=== PATIENT | female | born 1945 ===

== ENCOUNTER 2018-04-06 07:24 | Emergency (ER) | payer OTHER ==
--- NOTE | 2018-04-06 08:06 | C.PDOC ---
History Of Present Illness Patient presents to ED c/o left sided facial paralysis/droop since approx 6am. She is also c/o occipital headache, decreased ability to close left eye and wrinkle left forehead. Patient denies visual changes, slurred speech, extremity weakness, sensory changes, gait changes, chest pain, palpitations, SOB , neck pain, fever. She admits to prior episode of "facial paralysis" in the that resolved spontaneously, lasted approx 1 month. Patient denies any PMHx, and arrived from [place] approx 6 months ago. Time Seen by Provider: 04/06/18 07:24 Chief Complaint (Nursing): Weakness/Neurological Deficit History Per: Patient, Family History/Exam Limitations: no limitations Onset/Duration Of Symptoms: Hrs (since 6am) Current Symptoms Are (Timing): Still Present Seizure Or Post-ictal Symptoms: None Possible Causative Factor(s): denies: Vertigo Past Medical History Reviewed: Historical Data, Nursing Documentation, Vital Signs Vital Signs: Last Vital Signs Temp 98.1 F 04/06/18 13:40 Pulse 56 L 04/06/18 13:40 Resp 18 04/06/18 13:40 BP 172/80 H 04/06/18 13:40 Pulse Ox 100 04/06/18 13:40 - Medical History PMH: No Chronic Diseases Other PMH: prior facial paralysis () Family History: States: No Known Family Hx - Social History Hx Alcohol Use: No Hx Substance Use: No - Immunization History Hx Tetanus Toxoid Vaccination: No Hx Influenza Vaccination: No Hx Pneumococcal Vaccination: No Review Of Systems Constitutional: Negative for: Fever, Chills ENT: Negative for: Ear Pain, Ear Discharge Cardiovascular: Negative for: Chest Pain, Palpitations Respiratory: Negative for: Cough, Shortness of Breath Gastrointestinal: Negative for: Nausea, Vomiting Skin: Negative for: Rash Neurological: Positive for: Headache (occipital (left sided)), Other (left sided facial paralysis). Negative for: Weakness, Numbness, Incoordination, Change in Speech, Confusion, Seizures, Altered Mental Status, Dizziness Physical Exam - Physical Exam Appears: Well, Non-toxic, No Acute Distress Skin: Normal Color, Warm, Dry, No Rash Head: Atraumatic, Normacephalic Eye(s): bilateral: Normal Inspection, PERRL, EOMI Oral Mucosa: Moist Cardiovascular: Rhythm Regular, No Murmur Respiratory: Normal Breath Sounds, No Rales, No Rhonchi, No Wheezing Gastrointestinal/Abdominal: Normal Exam, Bowel Sounds, Soft, No Tenderness Neurological/Psych: Oriented x3, No Normal Cranial Nerves (left sided facial paralysis - unable to move left side of lips, unable to close left eye, decreased wrinkling of left forehead), No Cerebellar Signs, Normal Motor, Normal Sensation, Normal Reflexes, No Expressive Aphasia, No Receptive Aphasia, No Dysarthria, No Romberg Gait: Steady ED Course And Treatment - Laboratory Results Result Diagrams: 04/06/18 07:54 04/06/18 07:54 ECG: Interpreted By Me, Viewed By Me (sinus bradycardia, left axis deviation, no acute ST/T wave changes) ECG Interpretation: No Acute Changes O2 Sat by Pulse Oximetry: 97 (RA) Pulse Ox Interpretation: Normal - CT Scan/US ct head Other Rad Studies (CT/US): Read By Radiologist, Radiology Report Reviewed CT/US Interpretation: Date of service: 04/06/2018. PROCEDURE: CT HEAD WITHOUT CONTRAST. HISTORY: left facial paralysis, cva vs facial nerve palsy. COMPARISON: None available. TECHNIQUE: Axial computed tomography images were obtained through the head/brain without intravenous contrast. Radiation dose: Total exam DLP = 843.44 MGy-cm. This CT exam was performed using one or more of the following dose reduction techniques: Automated exposure control, adjustment of the mA and/or kV according to patient size, and/or use of iterative reconstruction technique. FINDINGS: HEMORRHAGE: No intracranial hemorrhage. BRAIN: Normal miller-white matter differentiation and density are appreciated throughout the cerebrum and cerebellum with the brainstem appearing unremarkable as well. There is no mass effect. There is no suspicious extra- axial fluid collection and the midline brain anatomy appears diffusely unremarkable. VENTRICLES: Unremarkable. No hydrocephalus. CALVARIUM: Unremarkable. PARANASAL SINUSES: Unremarkable as visualized. No significant inflammatory changes. MASTOID AIR CELLS: Unremarkable as visualized. No inflammatory changes. OTHER FINDINGS: None. IMPRESSION: Unremarkable noncontrast head CT. Follow-up CT or MRI are available if clinically warranted. MRI brain Other Rad Studies (CT/US): Read By Radiologist, Radiology Report Reviewed CT/US Interpretation: No acute intracranial abnormality. Mild age-related global parenchymal volume loss. Progress Note: Blood work, CT head ordered and reviewed. Patient has only partial paralysis of forehead,not full paralysis typically seen in Schuler's palsy - MRI ordered to eval for CVA vs facial nerve palsy. Reevaluation Time: 13:40 Reassessment Condition: Improved (Patient resting comfortably, in no pain/ distress. Neuro exam unchanged. CT head and MRI both neg for acute CVA. Patient given Rx for Medrol dose pack, Acyclovir, eye drops and Norvasc (BP consistetly elevated during ER stay). She was instructed to follow up with PMD/ clinic in 1-2 days, and understands she should return to ED if symptoms worsen.) Disposition Counseled Patient/Family Regarding: Studies Performed, Diagnosis, Need For Followup, Rx Given - Disposition Referrals: [facility] [Outside] Jonathan Pena MD [Staff Provider] - Disposition: HOME/ ROUTINE Disposition Time: 13:40 Condition: STABLE Additional Instructions: FOLLOW UP WITH NEUROLGY WITHIN 1 WEEK USE MEDICATIONS DIRECTED RETURN TO EMERGENCY ROOM IF SYMPTOMS WORSEN SEGUIR CON NEUROLOGA DENTRO DE 1 SEMANA USE MEDICAMENTOS SEGN LO INDICADO REGRESE AL NICOLE DE EMERGENCIA SI LOS SNTOMAS EMPEORAN Prescriptions: Acyclovir 400 mg PO TID #21 tablet amLODIPine [Norvasc] 2.5 mg PO DAILY #30 tab Carboxymethylcellulose Sodium [Lubricant Eye Drop] 2 ml OP TID #1 bottle Methylprednisolone [Medrol Dose Pack (21 tabs)] 4 mg PO DAILY #21 mg Instructions: Schuler's Palsy (DC) Forms: [employer] ([place]) Print Language: [place] - Clinical Impression Clinical Impression: Facial nerve palsy
[2018-04-06 08:10] LABS: BASO # 0.1 K/uL (0.0-0.2); BASO % 0.9 % (0.0-2.0); EOS # 0.5 K/uL (0.0-0.7); EOS % 6.2 % (0.0-4.0); HEMOGLOBIN 14.2 g/dL (11.0-16.0); LYMPH % 34.5 % (20.0-40.0); MEAN CELL VOLUME 91.1 fL (81.0-99.0); MEAN CORPUSCULAR HEMOGLOBIN 31.3 pg (27.0-31.0); MEAN CORPUSCULAR HGB CONC 34.4 g/dL (33.0-37.0); MEAN PLATELET VOLUME 8.9 fL (7.2-11.7); MONO # 0.7 K/uL (0.0-0.8); MONO % 7.8 % (0.0-10.0); NEUT # 4.3 K/uL (1.8-7.0); NEUT % 50.6 % (50.0-75.0); NRBC % 0.1 % (0.0-2.0); RBC 4.53 Mil/uL (3.80-5.20); RED CELL DISTRIBUTION WIDTH 13.5 % (11.5-14.5); WHITE BLOOD COUNT 8.6 K/uL (4.8-10.8)
[2018-04-06 08:24] LABS: PROTHROMBIN TIME 10.4 SECONDS (9.7-12.2)
--- NOTE | 2018-04-06 08:39 | CT ---
Date of service: 04/06/2018 PROCEDURE: CT HEAD WITHOUT CONTRAST. HISTORY: left facial paralysis, cva vs facial nerve palsy COMPARISON: None available. TECHNIQUE: Axial computed tomography images were obtained through the head/brain without intravenous contrast. Radiation dose: Total exam DLP = 843.44 MGy-cm. This CT exam was performed using one or more of the following dose reduction techniques: Automated exposure control, adjustment of the mA and/or kV according to patient size, and/or use of iterative reconstruction technique. FINDINGS: HEMORRHAGE: No intracranial hemorrhage. BRAIN: Normal miller-white matter differentiation and density are appreciated throughout the cerebrum and cerebellum with the brainstem appearing unremarkable as well. There is no mass effect. There is no suspicious extra-axial fluid collection and the midline brain anatomy appears diffusely unremarkable. VENTRICLES: Unremarkable. No hydrocephalus. CALVARIUM: Unremarkable. PARANASAL SINUSES: Unremarkable as visualized. No significant inflammatory changes. MASTOID AIR CELLS: Unremarkable as visualized. No inflammatory changes. OTHER FINDINGS: None. IMPRESSION: Unremarkable noncontrast head CT. Follow-up CT or MRI are available if clinically warranted.
[2018-04-06 08:43] LABS: CK-MB 0.82 ng/mL (0.0-3.38)
[2018-04-06 08:49] LABS: ALB/GLOB RATIO 1.2 (1.0-2.1); ALBUMIN 4.1 g/dL (3.5-5.0); ALT/SGPT 37 U/L (9-52); AST/SGOT 40 U/L (14-36); BLOOD UREA NITROGEN 18 mg/dL (7-17); GFR AFRICAN-AMERICAN > 60; GFR NON-AFRICAN AMERICAN > 60; HDL CHOLESTEROL 64 mg/dL (30-70)
[2018-04-06 09:02] LABS: LDL CHOLESTEROL 151 mg/dL (0-129)
--- NOTE | 2018-04-06 12:26 | MRI ---
Date of service: 04/06/2018 PROCEDURE: MRI BRAIN WITHOUT CONTRAST HISTORY: left sided facial droop, cva v, facial berve pals COMPARISON: Noncontrast head CT from 04/06/2018 TECHNIQUE: Multiplanar, multisequence MR images of the brain were obtained without intravenous contrast enhancement. FINDINGS: HEMORRHAGE: None DWI: No evidence of an acute or early subacute infarction. BRAIN PARENCHYMA: Chahal-white matter differentiation is preserved. There is no mass, mass effect or abnormal extra-axial fluid collection. There is no territorial infarction. There is a partially empty sella, otherwise the midline sagittal structures are normal. VENTRICLES: There is mild age-related global parenchymal volume loss and proportionate enlargement of the ventricles and cortical sulci. CRANIUM: There is normal bone marrow signal pattern. ORBITS: Grossly unremarkable. PARANASAL SINUSES/MASTOIDS: Predominantly clear. VASCULAR SYSTEM: There are normal signal voids in the larger intracranial arteries. OTHER FINDINGS: None. IMPRESSION: No acute intracranial abnormality. Mild age-related global parenchymal volume loss.
[2018-04-06 13:46] VITALS: BP 172/80; PULSE 56; RESP 18; TEMP 98.1
[2018-04-09 17:48] VITALS: O2SAT 97
--- NOTE | 2018-04-11 21:24 | CARD ---
APPROVED REPORT EKG Measurement Heart [id number] <Conclusion> Sinus bradycardia Left axis deviation Abnormal ECG
== END 2018-04-06 13:40 | disposition home or self-care (01) ==
LOC: C.ER 07:24
DX: G51.0 Bell's palsy (principal)

== ENCOUNTER 2019-01-31 08:28 | Outpatient (CLI) | payer OTHER | END 2019-01-31 08:29 | disposition home or self-care (01) | LOC: C.DEXAIC 08:28 ==